=== PATIENT | male | born 1950 | race Caucasian/White ===

== ENCOUNTER → 2018-08-13 | Outpatient (CLI) | payer MEDICARE ==
[2018-08-13 12:52] LABS: BASOPHIL % 0.4 % (0.0-0.2); EOSINOPHIL # 0.2 10^3/uL (0.0-0.2); EOSINOPHIL % 2.9 % (0.0-5.0); HEMOGLOBIN 14.4 g/dL (13.9-16.3); LYMPHOCYTES # 1.9 10^3/uL (1.0-4.8); LYMPHOCYTES % 25.3 % (24.0-44.0); MEAN CELL HGB CONCENTRATION 36.3 g/dL (33-37); MEAN CORP VOLUME 82.7 fL (78-100); MEAN PLATELET VOLUME 9.6 fL (7.8-11.0); MONOCYTES # 0.7 10^3/uL (0.3-0.8); MONOCYTES % 9.1 % (5.0-12.0); NEUTROPHIL # 4.6 10^3/uL (1.8-7.7); NEUTROPHILS % 62.2 % (41.0-85.0); PLATELET COUNT 237 10^3/uL (150-400); RED CELL DISTRIBUTION WIDTH 12.9 % (11.5-14.5); WHITE BLOOD CELL 7.5 10^3/uL (4.5-11.0)
[2018-08-13 13:43] LABS: CALCIUM 8.7 mg/dL (8.4-10.5); CARBON DIOXIDE 23.8 mmol/L (20.0-32)
== END | disposition home or self-care (01) ==
LOC: LAB 12:33
PROVIDERS: ATTEND Internal Medicine
DX: Z68.33 Body mass index [BMI] 33.0-33.9, adult (principal)
CPT/HCPCS: 36415; 80053; 80061; 83036; 84439; 84443; 85025

== ENCOUNTER 2019-05-05 16:54 | Emergency (ER) | payer MEDICARE ==
[~2019-05-05] VITALS: Ht 172.7 cm; Wt 94.8 kg
--- NOTE | 2019-05-05 17:16 | ER.PDOC ---
General Chief Complaint: Requesting Medical Care Stated Complaint: WOUND CHECK Time seen by MD: 17:12 Source: patient Exam Limitations: no limitations History of Present Illness Initial Procedure Done In ER: y Treated In Another ED/Practice: No Previous ED Treatment: laceration repair Symptoms Since Procedure: no complaints Skin: see HPI All Other Systems: Reviewed and Negative Physical Exam General Appearance: alert, no distress Neuro/Vascular/Tendon: no vascular compromise, sensation nml, no tendon injury, nml ROM Skin: no infection, healing wound Head/ENT: nml inspection, pharynx nml Neck/Back: nml inspection, non-tender, painless ROM Respiratory: chest non-tender, no resp. distress, breath sounds nml CVS: reg. rate & rhythm, heart sounds nml Abdomen: non-tender, no organomegaly Departure Time of Disposition: 17:15 Disposition: 01 HOME, SELF-CARE Impression: Primary Impression: Wound of right foot Condition: Stable Patient Instructions: Sutured Wound Care Referrals: RA SEGURA MD (PCP) PRIMARY CARE PROVIDER Duration or Time Spent with Pa: 10 MARIXA FORRESTER MD May 05, 2019 17:16
[2019-05-05 17:35] VITALS: BP 147/91
--- NOTE | 2019-05-05 17:38 | NUR ---
DRESSING TELFA, GAUZE, GAUZE ROLL AND COBAN APPLIED TO PT WOUND ON RIGHT FOOT.
== END 2019-05-05 17:41 | disposition home or self-care (01) ==
LOC: ER 16:54
DX: S91.301D Unspecified open wound, right foot, subsequent encounter (principal); X58.XXXD Exposure to other specified factors, subsequent encounter; Y93.89 Activity, other specified; Y92.89 Other specified places as the place of occurrence of the external cause; Y99.8 Other external cause status
CPT/HCPCS: 99281; 99282; 99284

== ENCOUNTER → 2019-07-25 | Outpatient (CLI) | payer MEDICARE ==
--- NOTE | 2019-07-25 18:10 | DIREP ---
PROCEDURE:XRAY SACRUM COCCYX MIN 2VWS COMPARISON:None. INDICATIONS:M53.3 SACROCOCCYGEAL DISORDERS, W19.XXXA FAL INITIAL ENCOUNTER FINDINGS:AP, lateral, coned-down angled view of sacrum and coccyx. BONES:No fracture is identified.. JOINTS:Sudikksi-ph-eoguez degenerative changes seen lumbar spine involving L3/L4, L4/L5, and L5/S1.. SOFT TISSUES:Normal. OTHER:Implanted device that likely represents a baclofen pump overlies device is seen with its catheter extending to the midline spine. Metallic clips are in the pelvis. CONCLUSION: No evidence of acute fracture. Dictated by: Ralph Gregorio MD on 07/25/2019 at 06:04 PM
== END | disposition home or self-care (01) ==
LOC: RAD 16:24
PROVIDERS: ATTEND Nurse Practitioner
DX: M53.3 Sacrococcygeal disorders, not elsewhere classified (principal)
CPT/HCPCS: 72220

== ENCOUNTER → 2020-01-07 | Outpatient (CLI) | payer MEDICARE ==
--- NOTE | 2020-01-07 14:19 | DIREP ---
PROCEDURE:XRAY KNEE 2 VWS-LT COMPARISON:None. INDICATIONS:PAIN FINDINGS: BONES:Normal. JOINTS:Mild degenerative loss of joint space in the medial compartment. Mild osteophytosis in the medial and patellofemoral compartment. No joint effusion. SOFT TISSUES:Normal. OTHER:No additional findings. CONCLUSION: 1. Mild degenerative joint disease. Dictated by: Freddy Lubin Jr. on 01/07/2020 at 01:43 PM
== END | disposition home or self-care (01) ==
LOC: RAD 11:49
PROVIDERS: ATTEND Internal Medicine
DX: M25.562 Pain in left knee (principal)
CPT/HCPCS: 73560-LT

== ENCOUNTER → 2020-02-27 | Outpatient (CLI) | payer MEDICARE ==
--- NOTE | 2020-02-27 16:46 | DIREP ---
PROCEDURE:MR KNEE WITHOUT CONTRAST [Left] TECHNIQUE:Multi-planar MR images of the left knee were obtained without contrast. COMPARISON:[facility], CR, XRAY KNEE 1-2 VWS-LT, 01/07/2020, 12:06 PM. INDICATIONS:PATELLA TENDON RUPTURE FINDINGS: MENISCI:Complex tear posterior horn, and body of the medial meniscus. Free edge degenerative fraying of the posterior horn lateral meniscus. CRUCIATE LIGAMENTS:Mucoid ACL degeneration without disruption seen. PCL demonstrates normal signal and morphology. COLLATERAL LIGAMENTS:Reactive edema surrounding the MCL without thickening cyst suggest sprain. Lateral collateral ligamentous complex demonstrates normal signal and morphology. HYALINE CARTILAGE:Full-thickness chondral loss noted towards the periphery of the medial joint compartment with subchondral cyst formation and reactive edema. Scattered full-thickness chondral fissuring seen in the lateral joint compartment articular cartilage particularly posteriorly. PATELLOFEMORAL:Patellofemoral articular cartilage demonstrates no focal defect. Quadriceps and patellar tendons intact. Patellar tendon intact with mild tendinosis, no tendon disruption seen. BONES:Marrow signal is age appropriate. Reactive marrow edema medial femoral condyle and medial tibial plateau. Small medial joint compartment marginal osteophytes. OTHER:Small mildly complicated Bobo's cyst appears partially ruptured inferiorly.. CONCLUSION: 1. Complex tear posterior horn and body medial meniscus. 2. Patellar tendon appears intact, mild underlying tendinosis suspected. 3. Reactive edema surrounds the MCL, less likely grade 1 sprain. 4. Medial compartment osteoarthritis. 5. Mucoid ACL degeneration. Dictated by: Carlos Gonzalez M.D. on 02/27/2020 at 04:38 PM
== END | disposition home or self-care (01) ==
LOC: RAD 12:53
PROVIDERS: ATTEND Orthopaedic Surgery
DX: S83.242A Other tear of medial meniscus, current injury, left knee, initial encounter (principal); M17.12 Unilateral primary osteoarthritis, left knee; X58.XXXA Exposure to other specified factors, initial encounter; Y93.89 Activity, other specified; Y92.89 Other specified places as the place of occurrence of the external cause; Y99.8 Other external cause status
CPT/HCPCS: 73721

== ENCOUNTER 2020-08-21 09:50 | Inpatient (IN) | payer MEDICARE ==
[~2020-08-21] VITALS: Ht 172.7 cm; Wt 84.6 kg
[2020-08-21] VITALS (31 sets, daily range): BP systolic 100–162; BP diastolic 48–112
--- NOTE | 2020-08-21 09:50 | NUR ---
PT STS HE WENT TO SEE FOR A BLISTER ON RIGHT FOOT, A LUMP ON HID NECK AND CHRONIC BACK PAIN
--- NOTE | 2020-08-21 09:50 | NUR ---
ARRIVAL 0940 PT VERY POOR HISTORIAN, PER PT WAS SEEN IN DR. BROWN OFFICE TODAY BECAUSE OF AL FALL DR. SEGURA SENT PT TO ER FOR EVALUATION. PT HR ANYWHERE FROM 90 TO 145. PT STS HE IS NOT FAMILIAR WITH HIS MEDICATION. PT DENIES N/V/D.
--- NOTE | 2020-08-21 10:23 | PCM.EKG ---
[facility] Test Date: 2020-08-21 Test Time: 10:10:20 Pat Name: TG DEL CASTILLO Department: Room: ICU2 Gender: M Acid Tester: DAQUAN : 1950 Requested By: MARK ECKERT Order Number: [id number] Reading MD: Mark ECKERT Measurements Intervals [place] Rate: 151 P: [place]: QRS: 113 QRSD: 134 T: 9 QT: 300 QTc: 476 Interpretive Statements Wide-QRS tachycardia RBBB and LPFB No previous ECG available for comparison Electronically Signed On 08-23-2020 7:27:14 [employer] by Mark ECKERT Please click the below link to view image of tracing.
--- NOTE | 2020-08-21 10:30 | NUR ---
AT BEDSIDE. EXAMINING PT
--- NOTE | 2020-08-21 10:40 | NUR ---
SR KLEIN IS REQUESTING ICU BED PT RIGHT POSTERIOR BUNDLE BRANCH BLOCK
--- NOTE | 2020-08-21 10:40 | ER.PDOC ---
General Chief Complaint: Palpitations Stated Complaint: HEART ARRHYTHMIA Time seen by MD: 10:36 Source: patient Exam Limitations: no limitations History of Present Illness Initial Comments Palpitations this morning, no chest pain. Patient was sent here by Dr. Segura. He denies SOB, nausea or vomiting. Quality: fast Activities at Onset: none Associated Symptoms: denies symptoms Allergies: Coded Allergies: No Known Allergies (Unverified , 05/05/19) Past Medical History Medical History: diabetes, hypertension Surgical History: appendectomy, back Family History Significant Family History: no pertinent family hx Social History Smoking: non-smoker Alcohol Use: none Drug Use: none Constitutional: no symptoms reported EENTM: no symptoms reported Respiratory: no symptoms reported Cardiovascular: see HPI Gastrointestinal: no symptoms reported Genitourinary: no symptoms reported All Other Systems: Reviewed and Negative Physical Exam General Appearance: No Apparent Distress, WD/WN Neck: Non-Tender, Full Range of Motion, Supple, Normal Inspection Respiratory: chest non-tender, lungs clear, normal breath sounds, no respiratory distress, no accessory muscle use Cardiovascular: Normal Peripheral Pulses, Tachycardia, Irregularly Irregular Gastrointestinal: Normal Bowel Sounds, No Organomegaly, No Pulsatile Mass, Non Tender, Soft Extremities: Normal Range of Motion, Non-Tender, Normal Inspection, No Pedal Edema, No Calf Tenderness, Normal Capillary Refill Neurologic/Psychiatric: vp cardiovascular II-XII NML as Tested, No Motor/Sensory Deficits, Alert, Normal Mood/Affect, Oriented x 3 Skin: Normal Color, Warm/Dry Lymphatic: No Adenopathy Results/Orders Results/Orders Orders - ROQUE ECKERT MD Cbc With Auto Diff (08/21/20 10:21) Comprehensive Metabolic Panel (08/21/20 10:21) Creatine Kinase (08/21/20 10:21) Creatine Kinase Mb (08/21/20 10:21) Troponin I (08/21/20 10:21) Probnp B-Type Leather Softener (08/21/20 10:21) PT (08/21/20 10:21) Partial Thromboplastin Time. (08/21/20 10:21) Xr Chest 1v (08/21/20 10:21) Ekg-Routine (08/21/20 10:21) Vital Signs Date Time Temp Pulse Resp B/P (MAP) Pulse Ox O2 Delivery O2 Flow Rate FiO2 08/21/20 10:07 98.2 82 20 99 08/21/20 10:07 98.2 82 20 99 EKG/XRAY/CT/US EKG: nonspecific ST T wave chg EKG Comments: A fib, Rate 151 XRAY: chest (No active disease) ER DEPART Departure Time of Disposition: 10:45 Disposition: 09 ADMITTED INPATIENT Impression: Primary Impression: Atrial fibrillation with rapid ventricular response Condition: Critical Referrals: RA SEGURA MD (PCP) PRIMARY CARE PROVIDER Comments Admitted by Dr. Lopez Duration or Time Spent with Pa: 45 min ROQUE ECKERT MD Aug 21, 2020 10:40
[2020-08-21 10:41] LABS: BASOPHIL % 0.5 % (0.0-0.2); EOSINOPHIL # 0.1 10^3/uL (0.0-0.2); EOSINOPHIL % 1.8 % (0.0-5.0); LYMPHOCYTES # 1.33 10^3/uL1 (1.0-4.8); MEAN CORP HGB 30.1 pg (26-34); MONOCYTES # 0.6 10^3/uL (0.3-0.8); MONOCYTES % 8.9 % (5.0-12.0); NEUTROPHIL # 4.6 10^3/uL (1.8-7.7); NEUTROPHILS % 68.6 % (41.0-85.0); PLATELET COUNT 260 10^3/uL (150-400); RED CELL DISTRIBUTION WIDTH 12.4 % (11.5-14.5)
[2020-08-21] MEDS ORDERED: NEXTERONE IV STA (10:42)
[2020-08-21] MEDS ORDERED: NEXTERONE 360 MG/200 ML BAG 200 ML IV STA (10:42)
[2020-08-21] MEDS ORDERED: NEXTERONE ONE (10:47)
[2020-08-21] MEDS ORDERED: NEXTERONE 360 MG/200 ML BAG 200 ML IV ONE (10:48)
--- NOTE | 2020-08-21 10:55 | DIREP ---
PROCEDURE:CHEST 1 VIEW COMPARISON:None. INDICATIONS:Palpitations FINDINGS: LUNGS/PLEURA:No significant pulmonary parenchymal abnormalities. No effusions. VASCULATURE:Normal. Unremarkable pulmonary vasculature. CARDIAC:Normal. No cardiac silhouette abnormality or cardiomegaly. MEDIASTINUM:Normal. No visible mass or adenopathy. BONES:Degenerative changes of the shoulders and spine. OTHER:Negative. CONCLUSION:No acute cardiopulmonary abnormality. Dictated by: Brandon Thurman M.D. on 08/21/2020 at 10:53 AM
[2020-08-21] MEDS ORDERED: ATIVAN PO STA (10:57)
--- NOTE | 2020-08-21 11:00 | NUR ---
AMIODORONAmilcar TINEO
[2020-08-21 11:11] LABS: ALANINE AMINOTRANSFERASE(ML) 20 U/L (12-78); ALKALINE PHOSPHATASE 94 U/L (50-136); ASPARTATE AMINO TRANSFERASE 10 U/L (0-35); CALCIUM 8.4 mg/dL (8.4-10.5); CARBON DIOXIDE 22.3 mmol/L (20.0-32)
[2020-08-21] MEDS ORDERED: INSU100I13 SQ ×2 (11:23→11:31)
[2020-08-21] MEDS ORDERED: PREG150C PO (11:23)
[2020-08-21] MEDS ORDERED: NABU750T7 PO (11:23)
[2020-08-21] MEDS ORDERED: DOXE10CA PO (11:23)
[2020-08-21] MEDS ORDERED: MULT-419 PO (11:23)
[2020-08-21] MEDS ORDERED: LISI-410 PO (11:23)
[2020-08-21] MEDS ORDERED: METF10007 PO (11:23)
[2020-08-21] MEDS ORDERED: DOCU-123 PO (11:23)
[2020-08-21] MEDS ORDERED: ROSU20TA2 PO (11:23)
[2020-08-21] MEDS ORDERED: SENN8.6T98 PO (11:23)
[2020-08-21] MEDS ORDERED: OXYC20TA2 PO (11:23)
[2020-08-21] MEDS ORDERED: GLIP5TAB10 PO (11:23)
[2020-08-21 11:24] LABS: GLUCOSE 408 mg/dL (70-110)
[2020-08-21] MEDS ORDERED: NEXTERONE 360 MG/200 ML BAG 200 ML IV SCH ×2 (11:30→17:30)
[2020-08-21] MEDS ORDERED: ASPI-178 PO (11:31)
[2020-08-21] MEDS ORDERED: DILT240T8 PO (11:31)
[2020-08-21] MEDS ORDERED: DIPH50CA PO (11:31)
[2020-08-21] MEDS ORDERED: NS 250ML 250 ML IV ONE (11:59)
[2020-08-21] MEDS: NS 1000ML/KCL 20MEQ 1,000 ML IV SCH (12:00)
[2020-08-21] MEDS ORDERED: DEXTROSE 50%-WATER SYRINGE IV PRN (12:00)
[2020-08-21] MEDS: HUMALOG SQ SCH ×2 (12:20→17:56)
[2020-08-21] MEDS ORDERED: ATIVAN ONE (12:48)
[2020-08-21] MEDS ORDERED: TOPROL XL PO STA (13:02)
[2020-08-21] MEDS: ZOSYN 3.375 GM 3.375 GM in NS 100ML 100 ML IV SCH ×2 (13:30→19:30)
--- NOTE | 2020-08-21 14:18 | HPH ---
ADMIT DATE: 08/21/2020 CHIEF COMPLAINT: Rapid irregular heartbeat, shortness of breath and significant anxiety. HISTORY OF PRESENT ILLNESS: The patient is a 70-year-old white male with history of hypertension, hypertensive heart disease and insulin-dependent diabetes and primary patient of Dr. Bernstein and he was picking up a package when the wind was blowing hard and then subsequently he felt his heart was running very fast and he became extremely anxious and came to the Emergency Room and was noted to be in atrial flutter/fibrillation with a ventricular rate of 150 and he had shortness of breath, no chest pain was noted. EKG showed right bundle branch block, left posterior fascicular block and atrial flutter/fibrillation with rapid ventricular response and I was called in consultation in the Emergency Room for further evaluation and management. He denied chest pain, was extremely anxious, was having shortness of breath. Complained of leg edema and he has a wound on his right heal and it seems like a diabetic ischemic wound. ALLERGIES: None known. MEDICATIONS AND PAST MEDICAL HISTORY: He is on a list of medications, which include aspirin 81 mg once a day, lisinopril 20 mg once a day, Senokot 8.6 mg at bedtime, Cardizem 240 mg once a day, diphenhydramine 50 mg once a day, metformin 1 gram twice a day and he is on nabumetone 750 mg twice a day which is a nonsteroidal agent, Lyrica 150 mg twice a day, doxepin 10 mg once a day, glipizide 5 mg twice a day. He is on Lantus insulin 30 units twice a day, oxycodone 20 mg 3 times a day p.r.n. for back pain. He has got a nerve stimulator in the left lower quadrant of his abdomen and has a neuropathy manifestation in both legs, Crestor 20 mg once a day. He was on Eliquis at one time, but he denies having had any atrial fibrillation or he is unclear on it. His memory is slightly decreased, history of depression. No known history of myocardial infarction, history of cancer or any TIA or strokes in the past. He has had 2 back operations and had a nerve stimulator for pain control and he has got chronic pain syndrome. SOCIAL HISTORY: Nonsmoker, no ethanol use. FAMILY HISTORY: Positive for heart problems. PHYSICAL EXAMINATION: GENERAL: He is very anxious, alert, awake, oriented. VITAL SIGNS: Height 172 cm, weight 81 kilograms, BMI is 27.2. His heart rate of 150, blood pressure 105/70 with respirations of 20, temperature was 98 and saturation of 98%. HEENT: Unremarkable. NECK: Jugular venous distention noted was 6-8 cm over the angle of Dima. There was a faint right carotid bruit. LUNGS: Showing some rales bilaterally. HEART: Sounds S1, S2 normal. Tachycardia, irregular rhythm was noted. No murmurs audible. May have a systolic ejection murmur in the aortic area consistent with aortic sclerosis, was not significant. ABDOMEN: Soft, nontender. EXTREMITIES: Dependent edema noted bilaterally and painful right ankle and appears to be an ischemic early necrotic wound in the right foot, will require wound care. IMAGING STUDIES: EKG; left posterior fascicular block, right bundle branch block, atrial fibrillation with rapid ventricular response. Chest x-ray unremarkable. LABORATORY DATA: CBC was normal, 408 sugar. Chemistries otherwise are normal. Troponin was less than 0.02, 652 proBNP. IMPRESSION: New onset atrial flutter/fibrillation, rapid ventricular response, probably clinical congestive heart failure, has hypertension, hypertensive heart disease, chronic diastolic heart failure, insulin-dependent diabetes mellitus, underlying coronary artery disease is a concern. Right carotid bruit. Right foot wound, probably ischemic diabetic wound, rule out early pregangrenous status. PLAN: At this time, wound care, Zosyn 3.375 grams IV q. 6 hours, IV amiodarone loading drip and Lovenox 1 mg/kg subcutaneous b.i.d. along with metoprolol and serial EKG, enzymes, echocardiogram, carotid Doppler and further medical management depends on the clinical course. Laxmichand MD John DR: NERY/rogers JOB# [id number]
--- NOTE | 2020-08-21 15:26 | PCM.EKG ---
[facility] Test Date: 2020-08-21 Test Time: 15:22:20 Pat Name: TG DEL CASTILLO Department: Room: ICU2 A Gender: M Heel Shaper: ED : 1950 Requested By: DEVIN PINEDA Order Number: [id number] Reading MD: Measurements Intervals [place] Rate: 57 P: 25 LA: 224 QRS: 82 QRSD: 136 T: 46 QT: 455 QTc: 443 Interpretive Statements Sinus rhythm Prolonged LA interval Right bundle branch block Compared to ECG 08/21/2020 10:10:20 First degree AV block now present Left posterior fascicular block no longer present Please click the below link to view image of tracing.
--- NOTE | 2020-08-21 16:45 | NUR ---
Pt bradycardic to 55, falling asleep Dr. Lopez notified Amiodarone d/c'd and lovenox d/c'd . Coming up to see patient at present.
[2020-08-21] MEDS ORDERED: NS 500ML 500 ML IV ONE (17:00)
--- NOTE | 2020-08-21 17:00 | NUR ---
Dr. Lopez here to evaluate patient, NS 500 bolus and EKG being done now
--- NOTE | 2020-08-21 17:07 | PCM.EKG ---
[facility] Test Date: 2020-08-21 Test Time: 17:03:38 Pat Name: TG DEL CASTILLO Department: Room: ICU2 A Gender: M Quantitative Manager: ED RT : 1950 Requested By: DEVIN PINEDA Order Number: [id number] Reading MD: Measurements Intervals [place] Rate: 55 P: 50 WI: 228 QRS: 74 QRSD: 135 T: 37 QT: 483 QTc: 462 Interpretive Statements Sinus rhythm Prolonged WI interval Right bundle branch block Compared to ECG 08/21/2020 15:22:20 No significant changes Please click the below link to view image of tracing.
--- NOTE | 2020-08-21 18:54 | NUR ---
REPORT RECEIVED FROM BRENNON MAI RN. ASSUMED PT CARE.
--- NOTE | 2020-08-21 18:55 | NUR ---
Report to Manfred Rose RN, discussed patient's condition and plan of care.
[2020-08-21] MEDS: OXY-IR PO PRN (20:05)
[2020-08-21] MEDS: LANTUS SQ SCH (21:00)
[2020-08-21] MEDS ORDERED: LOVENOX SQ SCH (21:00)
[2020-08-21] MEDS ORDERED: ATIVAN PO SCH (21:00)
[2020-08-21] MEDS ORDERED: SINEQUIN PO SCH (21:00)
[2020-08-21] MEDS: COLACE PO SCH (21:19)
[2020-08-21] MEDS: ELIQUIS PO SCH (21:20)
[2020-08-21] MEDS: GLUCOTROL PO SCH (21:20)
[2020-08-22] VITALS (50 sets, daily range): BP systolic 91–147; BP diastolic 30–97
--- NOTE | 2020-08-22 00:47 | PCM.EKG ---
[facility] Test Date: 2020-08-22 Test Time: 00:43:46 Pat Name: TG DEL CASTILLO Department: Room: ICU2 A Gender: M Community Mental Health Social Worker: SUZANNE : 1950 Requested By: DEVIN PINEDA Order Number: [id number] Reading MD: Measurements Intervals [place] Rate: 55 P: 40 WA: 221 QRS: 88 QRSD: 145 T: 47 QT: 506 QTc: 484 Interpretive Statements Sinus rhythm Prolonged [place] interval Right bundle branch block Compared to ECG 08/21/2020 17:03:38 No significant changes Please click the below link to view image of tracing.
[2020-08-22] MEDS: ZOSYN 3.375 GM 3.375 GM in NS 100ML 100 ML IV SCH ×2 (01:29→07:30)
[2020-08-22] MEDS: NS 1000ML/KCL 20MEQ 1,000 ML IV SCH (02:55)
--- NOTE | 2020-08-22 06:44 | NUR ---
REPORT TO ONCOMING SHIFT. PT CARE RELINQUISHED.
[2020-08-22] MEDS ORDERED: OXY-IR ONE ×2 (07:40→07:43)
[2020-08-22] MEDS: HUMALOG SQ SCH ×2 (07:53→12:00)
[2020-08-22] MEDS: OXY-IR PO PRN (07:54)
[2020-08-22] MEDS ORDERED: CRESTOR PO ONE (08:24)
[2020-08-22] MEDS: COLACE PO SCH (08:34)
[2020-08-22] MEDS: LANTUS SQ SCH (08:35)
[2020-08-22] MEDS: GLUCOTROL PO SCH (08:35)
[2020-08-22] MEDS: ELIQUIS PO SCH (08:35)
[2020-08-22] MEDS ORDERED: THERA PO SCH (09:00)
[2020-08-22] MEDS ORDERED: CRESTOR PO SCH (09:00)
[2020-08-22] MEDS ORDERED: AMIO200T6 PO (13:35)
[2020-08-22] MEDS ORDERED: APIX5TAB PO (13:35)
[2020-08-22] MEDS ORDERED: INSU100V8 SQ (13:35)
[2020-08-22] MEDS ORDERED: LOSA25TA12 PO (13:35)
[2020-08-22] MEDS ORDERED: AMOX1TAB63 PO (13:38)
--- NOTE | 2020-08-22 14:10 | DSH ---
DATE OF DISCHARGE: 08/22/2020 FINAL DIAGNOSES: Atrial fibrillation with rapid ventricular response, cardioverted chemically with IV amiodarone drip and relative bradycardia; conduction system abnormality with left posterior fascicular block and right bundle branch block; insulin-dependent diabetes mellitus; chronic pain syndrome; hypertension; hypertensive heart disease; diabetic ischemic ulcer on the right foot, rule out pregangrenous status; right carotid bruit; underlying coronary artery disease, definite concern. Please refer to my history and physical to the point of my impression. HOSPITAL COURSE: The patient is a 70-year-old white male who is a primary patient of Dr. Bernstein. He was carrying some boxes when he had palpitations and came to the ER, was in atrial fibrillation with rapid ventricular response of 140-150 and was very anxious, and EKG showed right bundle branch block and left posterior fascicular block with atrial fibrillation with rapid ventricular response, and he was having shortness of breath with clinical manifestations of some pulmonary congestion and he has multiple medical problems. He was started on IV amiodarone drip and Lovenox 1 mg/kg subcutaneous twice a day, and he became relatively bradycardic with a rate about 50 while on amiodarone drip and did convert several hours later into regular sinus rhythm. EKG showed still right bundle branch block and left posterior fascicular block. Troponins were negative. He feels well this morning, and at the present time, he wants to go home. He probably needs to be evaluated for underlying coronary artery disease. His CBC was normal. Sugar was slightly elevated to 408, and he received sliding scale insulin coverage, and at the time of discharge, sugar was 218 and his 2 troponins are less than 0.02. EKG was stable. He overall felt better, and he was told to come to the office on 08/27/2020 at 10 o'clock for a Lexiscan myocardial perfusion scan. I did put him on amiodarone 200 mg once a day and Augmentin 875 mg 1 tablet twice a day for ischemic foot ulcer, and the [facility] would not allow me to continue his 70/30 insulin, so I put him on Lantus insulin 30 units subcutaneous b.i.d. He can take it up with Dr. Bernstein and go back to his usual insulin. Because his blood pressures are relatively low, I did not start him on his diltiazem and lisinopril, just gave him a low-dose losartan 25 mg once a day, aspirin 81 mg once a day, Colace 100 mg twice a day, doxepin 10 mg once a day, glipizide 5 mg twice a day, metformin 1 gram twice a day, multivitamin once a day, Lyrica 150 mg twice a day, Crestor 20 mg once a day, Senokot 8.6 mg at bedtime. Diltiazem, diphenhydramine, lisinopril, Relafen, and oxycodone were held at this time. I discouraged him from taking these medications because of his lower rates and at the same time to preserve his kidney and possibility of underlying coronary artery disease. His creatinine was normal, and he will check back with Dr. Bernstein, but we will have a perfusion study on 08/27/2020 at 10 o'clock. No caffeine for 14 hours before the test. Laxmichand MD John DR: NERY/rogers JOB# [id number]
--- NOTE | 2020-08-22 14:34 | NUR ---
1400 PATIENT READYING FOR DISCHARGE. UP TO BS FOR VERY LARGE BM, SOLID, BROWN. IV'S IN LUE DC'D WITH CATHETERS INTACT, HEMOSTASIS ACHIEVED WITH COTTON AND COBAN. SPOUSE WENT DOWN TO GET VEHICLE. PATEINT AMBULATED IN UNIT AND IN ROOM, GAIT STEADY, OCCASIONAL ASSISTANCE BY PATIENT GRABBING FURNITURE. DENIES ANY CHEST PAIN, SHORTNESS OF BREATH OR DIFFICULTY BREATHING. ASSISTED PATIENT WITH SOCKS AND SHOES. REVIEWED DISCHARGE INSTRUCTIONS AND NEW PRESCRIPTIONS WITH PATIENT, QUESTIONS ANSWERED. ADVISED PATIENT OF DATE AND TIME FOR FOLLOWUP APPOINTMENT WITH MD. PATIENT TAKEN TO PRIVATE VEHICLE IN WHEELCHAIR. FAMILY ASSUMED CARE OF PATIENT.
--- NOTE | 2020-08-22 19:10 | CNH ---
DATE OF CONSULTATION: 08/22/2020 INDICATION: A 70-year-old male with atrial flutter/fibrillation with rapid ventricular response and right bundle-branch block, left posterior fascicular block, hypertension, hypertensive heart disease and diabetes mellitus, assess for LV function. The patient's echo was done after the patient did convert back into regular sinus rhythm. He did have first-degree AV block at that time and some of the images are suboptimal. FINDINGS: Mitral valve shows some degree of mitral annular calcification and mild mitral regurgitation of 1.87 meters consistent with 1-2+ mitral regurgitation. Aorta is sclerotic with normal aortic valve opening of 5.6 square cm. Tricuspid valve shows trivial tricuspid regurgitation with right ventricular systolic pressure of 17 mm. Right ventricle is top normal size, mild enlargement to 3.5 cm. Right atrium is enlarged to 4.6 cm in 4-chamber longitudinal dimension. Left atrium is enlarged in 4-chamber longitudinal dimension to 5.5 cm. Left ventricle is also enlarged to 5.91 cm, end diastolic dimension with 3.75 cm, end-systolic dimension with increased volume overload with an increase in end-diastolic volume of 120 mL with intact LV systolic function with 60% ejection fraction. IVC is top normal size. Hence, LV enlargement, volume overload and intact LV systolic function, biatrial enlargement, mild right ventricular enlargement, mild mitral and tricuspid regurgitation. No thrombus in any other cardiac chambers. Laxmichand MD John DR: NERY/rogers JOB# [id number]
== END 2020-08-22 14:10 | disposition home or self-care (01) | DRG 310 ==
LOC: ER 09:50 → ICU 10:48
PROVIDERS: ADMIT Specialist; ATTEND Specialist
PROC: 5A2204Z Restoration of Cardiac Rhythm, Single (ICD-10-PCS; principal; 2020-08-22)
DX: I48.91 Unspecified atrial fibrillation (principal); I45.2 Bifascicular block; I48.92 Unspecified atrial flutter; F41.9 Anxiety disorder, unspecified; G89.4 Chronic pain syndrome; I44.0 Atrioventricular block, first degree; E11.621 Type 2 diabetes mellitus with foot ulcer; I11.9 Hypertensive heart disease without heart failure; L97.519 Non-pressure chronic ulcer of other part of right foot with unspecified severity; I25.10 Atherosclerotic heart disease of native coronary artery without angina pectoris; E11.65 Type 2 diabetes mellitus with hyperglycemia; I08.1 Rheumatic disorders of both mitral and tricuspid valves; Z79.899 Other long term (current) drug therapy; Z79.4 Long term (current) use of insulin
CPT/HCPCS: 36415; 71045; 80053; 82550; 82553; 82948; 83880; 84484; 85025; 85610; 85730; 87070; 87077; 87186; 87633; 93005; 93306; 99285; G0378; J0282; J1815; J2543; J7040; J7050

== ENCOUNTER → 2021-05-07 | Outpatient (CLI) | payer MEDICARE ==
[~2021-05-07] MED LIST: AMIO200T55 PO; AMOX1TAB63 PO; APIX5TAB PO; ASPI-178 PO; DILT240T8 PO; DIPH50CA16 PO; DOCU-123 PO; DOXE10CA PO; GLIP5TAB10 PO; INSU100I13 SQ; INSU100V8 SQ; LISI20TA21 PO; LOSA25TA12 PO; METF10007 PO; MULT-419 PO; NABU750T11 PO; OXYC20TA2 PO; PREG150C PO; ROSU20TA2 PO; SENN8.6T98 PO
[2021-05-07 15:06] LABS: BASOPHIL % 0.3 % (0.0-0.2); EOSINOPHIL # 0.1 10^3/uL (0.0-0.2); EOSINOPHIL % 0.8 % (0.0-5.0); LYMPHOCYTES # 0.94 10^3/uL1 (1.0-4.8); LYMPHOCYTES % 12.3 % (24.0-44.0); MEAN CORP HGB 29.9 pg (26-34); MONOCYTES # 0.7 10^3/uL (0.3-0.8); MONOCYTES % 9.1 % (5.0-12.0); NEUTROPHIL # 5.9 10^3/uL (1.8-7.7); NEUTROPHILS % 77.4 % (41.0-85.0); PLATELET COUNT 300 10^3/uL (150-400); RED CELL DISTRIBUTION WIDTH 12.7 % (11.5-14.5)
[2021-05-07 15:19] LABS: BILIRUBIN,URINE NEGATIVE (NEGATIVE)
[2021-05-07 15:20] LABS: UROBILINOGEN,URINE 0.2 E.U./dL (0.2)
[2021-05-07 15:35] LABS: CALCIUM 9.5 mg/dL (8.4-10.5); CARBON DIOXIDE 27.5 mmol/L (20.0-32)
== END | disposition home or self-care (01) ==
LOC: LAB 14:41
PROVIDERS: ATTEND Internal Medicine
DX: Z12.5 Encounter for screening for malignant neoplasm of prostate (principal); R42 Dizziness and giddiness; F41.1 Generalized anxiety disorder; I10 Essential (primary) hypertension; E11.40 Type 2 diabetes mellitus with diabetic neuropathy, unspecified; R41.0 Disorientation, unspecified; Z79.899 Other long term (current) drug therapy
CPT/HCPCS: 36415; 80053; 81001; 83036; 84439; 84443; 85025; 87086; G0103; 84153

== ENCOUNTER 2021-11-09 08:50 | Inpatient (IN) | payer MEDICARE ==
[2021-11-09] VITALS (42 sets, daily range): BP systolic 113–172; BP diastolic 44–112
[~2021-11-09] VITALS: Ht 172.7 cm; Wt 86.6 kg
--- NOTE | 2021-11-09 09:17 | PCM.EKG ---
[facility] Test Date: 2021-11-09 Test Time: 09:02:38 Pat Name: TG DEL CASTILLO Department: [id number] Room: Gender: M Weaver [place]: CAMI : 1950 Requested By: SHELLY EMERSON Order Number: [id number] Reading MD: Measurements Intervals [place] Rate: 144 P: [place]: QRS: 173 QRSD: 126 T: 20 QT: 331 QTc: 513 Interpretive Statements Atrial fibrillation RBBB and LPFB Compared to ECG 11/09/2021 09:00:50 Ventricular premature complex(es) no longer present Please click the below link to view image of tracing.
[2021-11-09 09:25] LABS: BASOPHIL % 0.3 % (0.0-0.2); EOSINOPHIL # 0.1 10^3/uL (0.0-0.2); EOSINOPHIL % 0.8 % (0.0-5.0); LYMPHOCYTES # 1.17 10^3/uL1 (1.0-4.8); LYMPHOCYTES % 12.6 % (24.0-44.0); MEAN CORP HGB 30.1 pg (26-34); MONOCYTES # 0.6 10^3/uL (0.3-0.8); MONOCYTES % 6.9 % (5.0-12.0); NEUTROPHIL # 7.4 10^3/uL (1.8-7.7); NEUTROPHILS % 79.2 % (41.0-85.0); RED CELL DISTRIBUTION WIDTH 13.8 % (11.5-14.5)
--- NOTE | 2021-11-09 09:33 | ER.PDOC ---
General Chief Complaint: General Complaint Stated Complaint: HYPOGLYCEMIA TRAVEL OUT OF US: No Time seen by MD: 09:26 Source: patient, EMS Exam Limitations: no limitations History of Present Illness Severity: moderate Allergies: Coded Allergies: No Known Allergies (Unverified , 05/05/19) Home Meds Active Scripts [Metoprolol Succinate] 25 MG TAB.ER.24H No Conflict Check, 25 MG PO DAILY for 30 Days Prov:DEVIN PINEDA MD 11/10/21 Dofetilide (TIKOSYN) 125 Mcg Capsule, 125 MCG PO BID for 30 Days, CAPSULE Prov:DEVIN PINEDA MD 11/10/21 Losartan Potassium (LOSARTAN POTASSIUM) 25 Mg Tablet, 25 MG PO DAILY24 for 30 D ays Prov:DEVIN PINEDA MD 08/22/20 Apixaban (Eliquis) 5 Mg Tablet, 5 MG PO BID for 30 Days, TAB Prov:DEVIN PINEDA MD 08/22/20 Insulin Glargine,Hum.rec.anlog (LANTUS SOLOSTAR) 100 Unit/1 Ml Insuln.pen, 30 UNITS SQ DAILY24, #15 MILLILITER 3 Refills Prov:DEVIN PINEDA MD 08/21/20 Reported Medications Aspirin (Lo-Dose Aspirin EC) 81 Mg Tablet.dr, 81 MG PO DAILY24 08/21/20 Docusate Sodium (COLACE) 100 Mg Capsule, 100 MG PO BID, CAPSULE 08/21/20 Pregabalin (LYRICA) 150 Mg Capsule, 1 CAP PO BID, #60 CAP 5 Refills 08/21/20 Doxepin Hcl (DOXEPIN HCL) 10 Mg Capsule, 1 CAP PO HS, #30 CAP 2 Refills 08/21/20 Multivitamin (MULTIVITAMINS) 1 Each Tablet, 1 TAB PO DAILY, #90 TAB 3 Refills 08/21/20 Metformin Hcl (METFORMIN HCL) 1,000 Mg Tablet, 1 TAB PO BID, #60 TAB 5 Refills 08/21/20 Sennosides (SENOKOT) 8.6 Mg Tablet, 8.6 MG PO HS, TAB 08/21/20 Rosuvastatin 20MG (CRESTOR 20MG) 20 Mg Tablet, 1 TAB PO DAILY, #30 TAB 5 Refills 08/21/20 Discontinued Reported Medications Glipizide (GLIPIZIDE) 5 Mg Tablet, 1 TAB PO BID, #60 TAB 3 Refills 08/21/20 Discontinued Scripts Amoxicillin/Potassium Clav (AUGMENTIN 875-125 TABLET) 1 Each Tablet, 1 EACH PO BID for 7 Days Prov:DEVIN PINEDA MD 08/22/20 Amiodarone Hcl (CORDARONE) 200 Mg Tablet, 200 MG PO DAILY24 for 30 Days Prov:DEVIN PINEDA MD 08/22/20 Insulin Glargine,Hum.rec.anlog (LANTUS) 100 Unit/1 Ml Vial, 30 UNIT SQ BID for 30 Days, VIAL Prov:DEVIN PINEDA MD 08/22/20 Past Medical History Medical History: cardiac problems, diabetes, hypertension, other Surgical History: other Social History Alcohol Use: none Drug Use: none Review of Systems Constitutional: chills Respiratory: denies no symptoms reported, denies see HPI, denies cough, denies orthopnea, denies shortness of breath, denies stridor, denies wheezing, denies other Cardiovascular: denies no symptoms reported, denies see HPI, denies chest pain, denies edema; palpitations; denies syncope, denies other Gastrointestinal: denies no symptoms reported, denies see HPI, denies abdominal pain, denies constipation, denies diarrhea, denies nausea, denies vomiting, denies other Physical Exam General Appearance: Anxious, Moderate Distress EENT: eyes nml inspection, nml ENT inspection Neck: Non-Tender, Full Range of Motion CVS: tachycardia Gastrointestinal: Normal Bowel Sounds, No Organomegaly Back: Normal Inspection, No CVA Tenderness Extremities: Normal Range of Motion, Non-Tender Skin: Normal Color Results/Orders Results/Orders Orders - SHELLY EMERSON MD Cbc With Auto Diff (11/09/21 09:10) Comprehensive Metabolic Panel (11/09/21 09:10) Creatine Kinase (11/09/21 09:10) Creatine Kinase Mb (11/09/21 09:10) Probnp B-Type Pneumatic Drum Sander (11/09/21 09:10) PT (11/09/21 09:10) Partial Thromboplastin Time. (11/09/21 09:10) Xr Chest 1v (11/09/21 09:10) Ekg-Routine (11/09/21 09:10) Troponin I High Sensitivity (11/09/21 09:10) Ammonia (11/09/21 09:10) Lactic Acid(Ml) (11/09/21 09:10) Urinalysis (11/09/21 09:18) Blood Culture (11/09/21 09:18) Diltiazem Hcl (Cardizem) (11/09/21 10:00) Lorazepam (Ativan) (11/09/21 09:40) Lorazepam (Ativan) (11/09/21 09:46) Accucheck Prn (11/09/21 09:46) Diltiazem Hcl (Cardizem) (11/09/21 09:46) 0.9 % Sodium Chloride (Ns 100ml) (11/09/21 09:46) Dextrose 50 % In Water (Dextrose 50%-Linda (11/09/21 09:50) Dextrose 10 % In Water (Dextrose 10%-Linda (11/09/21 09:50) Accucheck (11/09/21 09:50) Accucheck (11/10/21 09:50) Dextrose 10 % In Water (Dextrose 10%-Linda (11/09/21 10:02) Ct Head Wo Contrast (11/09/21 10:11) Admit Orders (11/09/21 10:36) Vital Signs Date Time Temp Pulse Resp B/P (MAP) Pulse Ox O2 Delivery O2 Flow Rate FiO2 11/09/21 10:30 138 22 152/80 (104) 98 Room Air 11/09/21 10:12 102 11/09/21 09:16 97.9 85 20 118/97 (104) 97 Room Air 11/09/21 08:55 97.9 85 20 97 11/09/21 08:55 97.9 85 20 Administered Medications Medications (Trade) Dose Ordered Sig/Nydia Route PRN Reason Start Time Stop Time Status Last Admin Dose Admin Dextrose 1,000 ml @ 100 mls/hr Q10H STAT IV 11/09/21 09:50 11/09/21 19:49 DC 11/09/21 10:13 100 MLS/HR Dextrose (Dextrose 50%-Water Syringe) 25 ml OT STAT IV 11/09/21 09:50 11/09/21 09:52 DC 11/09/21 10:00 25 ML Diltiazem HCl 125 mg/Sodium Chloride 125 ml @ 0 mls/hr IV 11/09/21 10:00 11/10/21 16:47 DC 11/09/21 10:12 5 MLS/HR Lorazepam (Ativan) 0.5 mg STAT STAT IV 11/09/21 09:40 11/09/21 09:45 DC 11/09/21 10:13 0.5 MG Laboratory Tests Test 11/09/21 09:00 11/09/21 09:18 11/09/21 09:49 11/09/21 10:32 White Blood Count 9.3 10^3/uL (4.5-11.0) Red Blood Count 4.58 10^6/uL (4.50-5.90) Hemoglobin 13.8 g/dL (13.9-16.3) L Hematocrit 41.0 % (37.0-53.0) Mean Corpuscular Volume 89.5 fL (78-100) Mean Corpuscular Hemoglobin 30.1 pg (26-34) Mean Corpuscular Hemoglobin Concent 33.7 g/dL (33-36.5) Red Cell Distribution Width 13.8 % (11.5-14.5) Platelet Count 338 10^3/uL (150-400) Mean Platelet Volume 9.7 fL (7.8-11.0) Neutrophils (%) (Auto) 79.2 % (41.0-85.0) Lymphocytes (%) (Auto) 12.6 % (24.0-44.0) L Monocytes (%) (Auto) 6.9 % (5.0-12.0) Neutrophils # (Auto) 7.4 10^3/uL (1.8-7.7) Lymphocytes # (Auto) 1.17 10^3/uL1 (1.0-4.8) Monocytes # (Auto) 0.6 10^3/uL (0.3-0.8) Absolute Immature Granulocyte (auto 0.02 10^3 u/L (0-2) Absolute Eosinophils (auto) 0.1 10^3/uL (0.0-0.2) Immature Granulocytes % 0.20 % (0.00-0.50) Eosinophils % 0.8 % (0.0-5.0) Basophils % 0.3 % (0.0-0.2) H Basophils # 0.0 10^3/uL (0.0-0.1) Prothrombin Time 10.0 SEC (9.1-11.5) Prothrombin Time INR (Non-Therap) 1.0 Activated Partial Thromboplast Time 25.2 SEC (22.5-33.1) Sodium Level 140 mmol/L (132-145) Potassium Level 4.4 mmol/L (3.6-5.2) Chloride Level 104.0 mmol/L (96-109) Carbon Dioxide Level 25.6 mmol/L (20.0-32) Anion Gap 14.8 Blood Urea Nitrogen 24 mg/dL (7-18) H Creatinine 0.79 mg/dL (0.59-1.40) Estimated GFR () 116.3 (>/=60) Est GFR (CKD-EPI)(Non-Afr Israeli) 96.1 (>/=60) BUN/Creatinine Ratio 30.0 Glucose Level 131 mg/dL (70-110) H Lactic Acid Level 1.9 mmol/L (0.5-1.9) Calcium Level 9.0 mg/dL (8.4-10.5) Total Bilirubin 0.5 mg/dL (0.2-1.0) Aspartate Amino Transferase (AST) 22 U/L (0-35) Alanine Aminotransferase (ALT) 26 U/L (12-78) Alkaline Phosphatase 70 U/L (50-136) Ammonia 3 umol/L (11-35) L Total Creatine Kinase 112 U/L (39-308) Creatine Kinase MB 2.8 ng/mL (0.5-3.6) Troponin I High Sensitivity 17 ng/L (0-75) Pro-B-Type Natriuretic Peptide 482 pg/mL (0-125) H Total Protein 6.7 g/dL (6.4-8.2) Albumin 3.8 g/dL (3.4-5.0) Globulin 2.9 Albumin/Globulin Ratio 1.310 Urine Collection Type UNKNOWN Urine Color YELLOW Urine Appearance CLEAR Urine Bilirubin NEGATIVE (NEGATIVE) Urine Ketones NEGATIVE (NEGATIVE) Urine Specific Bruni 1.025 (1.005-1.030) Urine pH 5.0 (4.5-8.0) Urine Protein NEGATIVE (NEGATIVE) Urine Urobilinogen 0.2 E.U./dL (0.2) Urine Nitrate NEGATIVE (NEGATIVE) Urine Leukocyte Esterase NEGATIVE (NEGATIVE) Urine Glucose (Auto)(UA) 100 mg/dL (NEGATIVE) H Urine Blood NEGATIVE (NEGATIVE) POC Glucose 75 (70 - 110) 139 (70 - 110) H Progress Progress stable, anxious. @ 0952- cbg 75. start hypoglycemic protocol EKG/XRAY/CT/US EKG Comments: afib W rvr @ 144 ER DEPART Departure Time of Disposition: 19:21 Disposition: 09 ADMITTED INPATIENT Impression: Primary Impression: Altered mental status Additional Impressions: Atrial fibrillation with RVR Seizure disorder Hypoglycemia Condition: Critical Referrals: RA SEGURA MD (PCP) PRIMARY CARE PROVIDER Scripts [Metoprolol Succinate] 25 MG TAB.ER.24H No Conflict Check 25 MG PO DAILY for 30 Days Prov: DEVIN PINEDA MD 11/10/21 Dofetilide (TIKOSYN) 125 Mcg Capsule 125 MCG PO BID for 30 Days, CAPSULE Prov: DEVIN PINEDA MD 11/10/21 Duration or Time Spent with Pa: 1hr Problem Qualifiers SHELLY EMERSON MD Nov 09, 2021 09:33
[2021-11-09] MEDS ORDERED: ATIVAN IV STA (09:40)
[2021-11-09] MEDS ORDERED: ATIVAN ONE (09:46)
[2021-11-09] MEDS ORDERED: NS 100ML 100 ML IV ONE ×2 (09:46→14:26)
[2021-11-09] MEDS ORDERED: CARDIZEM ONE (09:46)
--- NOTE | 2021-11-09 09:49 | DIREP ---
PROCEDURE:CHEST 1 VIEW COMPARISON:[facility], CR, XRAY CHEST SINGLE VW, 08/21/2020, 10:34 AM. INDICATIONS:seizure FINDINGS: LUNGS/PLEURA:No focal consolidation, pleural effusion, or pneumothorax. VASCULATURE:Normal. Unremarkable pulmonary vasculature. CARDIAC:Normal. No cardiac silhouette abnormality or cardiomegaly. MEDIASTINUM:Normal. No visible mass or adenopathy. BONES:Degenerative change without evidence of acute osseus abnormality. OTHER:Negative. CONCLUSION: 1. No acute cardiopulmonary process. Dictated by: Timothy Romero MD on 11/09/2021 at 09:46 AM
[2021-11-09] MEDS ORDERED: DEXTROSE 10%-WATER IV SOLUTION 1,000 ML IV STA (09:50)
[2021-11-09] MEDS ORDERED: DEXTROSE 50%-WATER SYRINGE IV STA (09:50)
--- NOTE | 2021-11-09 09:50 | NUR ---
BEDSIDE GLUCOSE 75, EDP NOTIFIED.
[2021-11-09 09:55] LABS: CARBON DIOXIDE 25.6 mmol/L (20.0-32)
[2021-11-09] MEDS ORDERED: CARDIZEM 125 MG in NS 100ML 100 ML IV SCH (10:00)
[2021-11-09] MEDS ORDERED: DEXTROSE 10%-WATER IV SOLUTION 1,000 ML IV ONE (10:02)
--- NOTE | 2021-11-09 10:33 | NUR ---
BEDSIDE GLUCOSE 139, EDP NOTIFIED.
--- NOTE | 2021-11-09 10:54 | DIREP ---
PROCEDURE:CT HEAD OR BRAIN W/O CONTRAST COMPARISON:[facility], CR, XRAY CHEST SINGLE VW, 11/09/2021, 09:23 AM. INDICATIONS:Alteration of consciousness TECHNIQUE:Axial CT images were obtained from vertex to the skull base without the administration of IV contrast. FINDINGS: VENTRICLES: The ventricles are normal in size and configuration for age. No hydrocephalus. CEREBRUM: Minimal chronic small vessel white matter ischemic changes. No intracranial hemorrhage, mass-effect, or midline shift. No CT evidence of acute infarction. CEREBELLUM: Normal for age. BRAINSTEM: Normal. BASAL CISTERNS: Normal. SKULL: Normal. No fracture. SINUSES: Normal. Visualized paranasal sinuses and mastoid air cells are clear. OTHER: No scalp swelling. Calcified plaque in the carotid siphons. CONCLUSION: 1. No acute intracranial abnormality. 2. Minimal chronic small vessel white matter ischemic changes. Dictated by: Brandon Esparza MD on 11/09/2021 at 10:50 AM
--- NOTE | 2021-11-09 11:17 | NUR ---
BEDSIDE GLUCOSE 201, EDP NOTIFIED.
--- NOTE | 2021-11-09 12:15 | NUR ---
ARRIVAL PT ARRIVED TO ROOM ICU5, NO S/S OF DISTRESS NOTED. PT PLACED ON BEDSIDE MONITOR. WILL CONT WITH PLAN OF CARE.
[2021-11-09] MEDS ORDERED: TOPROL XL PO STA (12:23)
[2021-11-09 12:25] LABS: BILIRUBIN,URINE NEGATIVE (NEGATIVE); UROBILINOGEN,URINE 0.2 E.U./dL (0.2)
[2021-11-09] MEDS ORDERED: COZAAR PO SCH (12:30)
[2021-11-09] MEDS ORDERED: HNS 1000ML/KCL 20MEQ 1,000 ML IV ONE (12:30)
[2021-11-09] MEDS ORDERED: DEXTROSE 50%-WATER SYRINGE IV PRN ×2 (12:30)
[2021-11-09] MEDS ORDERED: D5W 1000ML 1,000 ML IV PRN (12:30)
[2021-11-09] MEDS ORDERED: ROCEPHIN ONE (14:27)
[2021-11-09] MEDS ORDERED: TOPROL XL PO ONE (14:27)
[2021-11-09] MEDS ORDERED: TIKOSYN PO ONE (14:30)
--- NOTE | 2021-11-09 14:32 | PCM.EKG ---
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
--- NOTE | 2021-11-09 14:40 | PCM.EKG ---
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
[2021-11-09] MEDS: ROCEPHIN 1,000 MG in NS 100ML 100 ML IV SCH (15:44)
--- NOTE | 2021-11-09 16:17 | NUR ---
STATUS DR PINEDA NOTIFIED OF EKG. NO NEW ORDERS RECEIVED.
--- NOTE | 2021-11-09 16:55 | PCM.EKG ---
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
[2021-11-09] MEDS: HUMALOG SQ SCH (18:14)
--- NOTE | 2021-11-09 18:17 | HPH ---
DICTATOR NAME: Dorita Lopez MD CHIEF COMPLAINT: Severe hypoglycemia, rapid atrial fibrillation. 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 Bernstein in the past and I have admitted him in 08/2020, at that time, he came in with atrial fibrillation with rapid ventricular response with right bundle branch block, left posterior fascicular block and I consulted him in the Emergency Room and subsequently he was cardioverted and went back into regular sinus rhythm, based on my recollection. He has been lost to follow up and he had a diabetic ischemic ulcer on his right foot also, but as far as I remember, he did go back into regular sinus rhythm. He chemically converted with IV amiodarone. He did have a relative bradycardia in the context of right bundle branch block and left posterior fascicular block, would bring up the issue of significant high-grade infra-Hisian block, requiring pacer insertion with atrial fibrillation and sinus node dysfunction. At the present time, his blood sugar was less than 20. He was in atrial fibrillation with rapid ventricular response and subsequently he was placed on Cardizem drip and his rate improved. He was given D50 and I was called for admission to ICU to rule out acute coronary event, in view of his multiple risk factors with underlying insulin-dependent diabetes mellitus. ALLERGIES: None known. MEDICATIONS: He is on losartan 25 mg once a day, amiodarone 200 mg once a day. I am not sure if he is taking it. He is on Lantus insulin 30 units twice a day, Eliquis 5 mg twice day and he is on a sliding scale insulin also. He is on aspirin 81 mg once a day, Colace 100 mg twice a day, Lyrica 150 mg once a day, doxepin 10 mg once a day, glipizide 5 mg twice a day, multivitamin once a day. This is based off the medication list from the Emergency Room. Crestor 20 mg once a day, Senokot 8.6 mg once a day. PAST MEDICAL HISTORY: Indicative of hypertension, hypertensive heart disease and no definite CAD has been established. He has had prior history of carotid bruit. He has got chronic pain syndrome, 2 back operations, nerve stimulator and he has got a pain pump in his abdomen in the left lower quadrant. SOCIAL HISTORY: Nonsmoker, no ethanol abuse. FAMILY HISTORY: Positive for heart problems. PHYSICAL EXAMINATION: GENERAL: He was found to be in a rate of 140-150. VITAL SIGNS: Blood pressure 152/80 with a pulse of 138 and respirations 22, saturation 98%. HEENT: Unremarkable. NECK: No JVD. Faint right carotid bruit was noted. Upstroke was normal. LUNGS: Poor air entry bilaterally. HEART: Sounds S1, S2 irregular No definite murmur was noted. ABDOMEN: Rounded. Loss of muscle tone in the anterior abdominal wall with a pain pump in the left lower quadrant. Bowel sounds are present. No organomegaly was elicited. EXTREMITIES: Distal pulses poorly felt. Mild dependent edema was noted. NEUROLOGIC: No lateralizing motor deficit is documented. DIAGNOSTIC DATA: EKG: Atrial fibrillation with rapid ventricular response with right bundle-branch block and left posterior fascicular block. His CBC was normal. Chemistry shows a BUN of 24, creatinine 0.79, and 131 glucose and 482 ProBNP. Urine was negative. Troponin were negative. COVID PCR was negative. His head CT shows microvascular ischemia, small vessel disease, and his chest x-ray was unremarkable. IMPRESSION: Atrial fibrillation with rapid ventricular response, severe hypoglycemia, mental changes due to hypoglycemia related to glipizide and poor diabetic control, insulin-dependent diabetes, hypertension, hypertensive heart disease, manifestations of right bundle branch block, left posterior fascicular block. Rule out underlying significant infra-Hisian disease. PLAN: At this time, admit the patient. We will stop Cardizem. We will start him on Tikosyn 125 mcg twice a day, metoprolol 50 mg once a day to control his blood pressure. Continue his statin and may start him on Lovenox. Serial EKGs, enzymes. Monitor his glucose level. Further management depending on the clinical course. Dorita Lopez MD DR: NERY/BALJINDER/MANUEL TID: [id number] RECEIPT: [id number] MTDD
[2021-11-09] MEDS: TIKOSYN PO SCH (20:18)
[2021-11-09] MEDS: COLACE PO SCH (20:18)
[2021-11-09] MEDS: LYRICA PO SCH (20:19)
[2021-11-09] MEDS ORDERED: SINEQUIN PO SCH (21:00)
[2021-11-09] MEDS ORDERED: LOVENOX SQ SCH (21:00)
[2021-11-09] MEDS ORDERED: LYRICA PO ONE (21:00)
[2021-11-09] MEDS ORDERED: SENOKOT PO SCH (21:00)
[2021-11-09] MEDS ORDERED: NORCO 10MG PO ONE ×2 (22:53→23:00)
[2021-11-10] VITALS (59 sets, daily range): BP systolic 61–157; BP diastolic 28–114
[2021-11-10] MEDS: HUMALOG SQ SCH ×2 (08:00→12:00)
[2021-11-10] MEDS: TIKOSYN PO SCH (08:53)
[2021-11-10] MEDS: LYRICA PO SCH (08:55)
[2021-11-10] MEDS: COLACE PO SCH (08:56)
[2021-11-10] MEDS ORDERED: CRESTOR PO SCH (09:00)
[2021-11-10] MEDS ORDERED: TOPROL XL PO SCH (09:00)
--- NOTE | 2021-11-10 10:29 | PCM.EKG ---
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
[2021-11-10] MEDS ORDERED: Metoprolol Succinate PO (10:57)
[2021-11-10] MEDS ORDERED: DOFE125C PO (10:57)
--- NOTE | 2021-11-10 11:39 | NUR ---
DISCHARGE PLAN PATIENT LIVES AT HOME WITH HIS SIGNIFICANT OTHER. 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 HIS PCP IS DR SEGURA AND FISHER QUAHOG IS DR PINEDA. PATIENT OWNS A CANE BUT NO OTHER DME INDICATED. PATIENT EDUCTED ON HH BUT HE WILL NOT QUALIFY HE CONTINUES TO DRIVE DAILY. PATIENT WILL HAVE PLACEMENT OF A LOOP RECORDER TODAY AND WILL DISCHARGE HOME WHEN MEDICALLY STABLE. PATIENT DENIED NEED FOR ADDITIONAL RESOURCES AT THIS TIME.
--- NOTE | 2021-11-10 12:10 | NUR ---
Procedure Patient report given to Tori RN. Patient transferred to laborer tan house via bed without s/s of acute distress noted
--- NOTE | 2021-11-10 12:34 | PCM.EKG ---
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
[2021-11-10] MEDS: ROCEPHIN 1,000 MG in NS 100ML 100 ML IV SCH (13:00)
--- NOTE | 2021-11-10 13:30 | NUR ---
Return Returned from procedure via bed awake, alert, oriented and answering questions appropriatell. Denies pain. Dressing to left chest CDI without s/s of active bleeding. Monitor placed on patient and lunch tray provided. Denies needs or concerns. No s/s of acute distress noted.
[2021-11-10] MEDS ORDERED: SUBLIMAZE ONE (14:29)
[2021-11-10] MEDS ORDERED: VERSED ONE (14:29)
--- NOTE | 2021-11-10 15:53 | NUR ---
Discharge Written and verbal discharge instructions provided. Encourged to continue routine medications as directed, continue Cardiac diet, resume activities as tolerated. If any symptoms of concern strongly encouraged to return to the ER. Educated on dressing to the left chest and encouraged not to remove until follow up with Dr. Lopez in 2 days. Medications called to [facility] pharmacy per patioent request. and patient denies needs questions or concerns. No s/s of acute distress noted. Transferred from room to private vehicle via wheel chair. Transferred from wheel chair to passenger side of vehicle without assistance and without difficulty. will drive patient home. GCS-15. 1640 - Contacted patients Ashley to tell her to go to Dr. Wilson office tomorrow to bead picker a device per Dr. Lopez. Ashley verbalized understanding.
--- NOTE | 2021-11-10 23:38 | DSH ---
DATE OF DISCHARGE: 11/10/2021 DICTATOR NAME: Dorita Lopez MD FINAL DIAGNOSES: Atrial fibrillation with rapid ventricular response, hypoglycemia, insulin-dependent diabetes mellitus, noncompliant with medications, chronic pain syndrome and has a pain pump, history of right bundle branch block, left posterior fascicular block with history of dizziness, lightheadedness, near syncope post-loop recorder insertion on 11/10/2021, hypertensive heart disease, acute coronary event excluded. Please refer to my history and physical to the point of my impression. HOSPITAL COURSE: The patient is a 71-year-old white male who was seen in early part of 2020. He had come with atrial fibrillation with rapid ventricular response. 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 Blood sugar was very low around 30 and he was given D50 and then subsequently, his blood sugars were monitored and they were acceptable. He has been on glipizide, which was taken away and he went into regular sinus rhythm initially after giving Cardizem and then started him on dofetilide 125 mcg twice a day. He chemically cardioverted back into regular sinus rhythm, but he had a definite right bundle branch block and left posterior fascicular block and his QTc did not prolong much, it was still less than 450 milliseconds, definitely less than 500 milliseconds and a loop recorder was inserted under local anesthesia in the left anterior chest wall in the precordial region without any complication. [place] were placed and this is in view of the fact that he is having paroxysmal atrial fibrillation along with an ominous findings on EKG of right bundle branch block and left posterior fascicular block with PACs followed by pauses and at times, pauses are noted, so very likely he may have tachybrady manifestation of sinus node dysfunction along with hypertension, hypertensive heart disease, chronic diastolic heart failure, an underlying ischemic substrate definitely needs to be excluded and he will be coming in the office for a perfusion study to assess for myocardial perfusion and hence, he was dismissed on dofetilide 125 mcg twice a day, metoprolol 25 mg once a day, Eliquis 5 mg twice a day, aspirin 81 mg once a day, Colace 100 mg twice a day, doxepin 10 mg once a day. He is on Lantus insulin 30 units daily and losartan 25 mg once a day, metformin 1 gram twice a day, glipizide was stopped, multivitamin once a day, Lyrica 150 mg twice a day for restless legs syndrome, Crestor 20 mg once a day, Senokot 8.6 mg at bedtime. 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 Dorita Lopez MD DR: NERY/MARLENE/JANES TID: [id number] RECEIPT: [id number]
--- NOTE | 2021-11-12 03:16 | ECHO ---
DATE OF SERVICE: 11/10/2021 DICTATOR NAME: Dorita Lopez MD ECHOCARDIOGRAPHY REPORT A 71-year-old male with history of atrial fibrillation with rapid ventricular response, history of abnormal EKG, hypertension, hypertensive heart disease, insulin-dependent diabetes mellitus, assess LV function. Mitral valve shows mitral regurgitation 1.2 meters velocity, normal E to A ratio, aortic sclerosis with adequate aortic valve opening of 4.19 square cm. Tricuspid valve shows trivial tricuspid regurgitation velocity of 1.42 meters with right ventricular systolic pressure of about 18 mm, which is normal. Right ventricle appears to be normal. Right atrium is normal. Left atrium mildly enlarged in 4-chamber longitudinal dimension of 5.45 cm. Left ventricle is boot shaped and it seems to be enlarged, but actually the measurements are inaccurate and 4-chamber appears to be normal in size, one cannot give any good estimation of the M-mode measurements, but based on the 2D, the left ventricle is normal in size with some degree of distal septum and apex being mildly hypokinetic and ejection fraction is still about 50%. No pericardial effusion is noted. No thrombus in any other cardiac chambers. Hence picture consistent with normal LV size with questionable wall motion abnormality of the septum and apex with an intact LV systolic function and mild enlargement of left atrium and no valvular abnormality documented. Dorita Lopez MD DR: NERY/CARLOTA TID: [id number] RECEIPT: [id number]
== END 2021-11-10 15:53 | disposition home or self-care (01) | DRG 261 ==
LOC: EDBD 08:50 → ER 08:50 → ICU 10:44
PROVIDERS: ADMIT Specialist; ATTEND Specialist
PROC: 5A2204Z Restoration of Cardiac Rhythm, Single (ICD-10-PCS; 2021-11-09)
PROC: 0JH632Z Insertion of Monitoring Device into Chest Subcutaneous Tissue and Fascia, Percutaneous Approach (ICD-10-PCS; principal; 2021-11-10 10:00)
DX: I48.0 Paroxysmal atrial fibrillation (principal); I50.32 Chronic diastolic (congestive) heart failure; I45.2 Bifascicular block; E11.649 Type 2 diabetes mellitus with hypoglycemia without coma; T38.3X5A Adverse effect of insulin and oral hypoglycemic [antidiabetic] drugs, initial encounter; I11.0 Hypertensive heart disease with heart failure; G25.81 Restless legs syndrome; G89.4 Chronic pain syndrome; I49.5 Sick sinus syndrome; L97.519 Non-pressure chronic ulcer of other part of right foot with unspecified severity; Z79.4 Long term (current) use of insulin; Z79.899 Other long term (current) drug therapy; Z91.14 Patient's other noncompliance with medication regimen; Y92.89 Other specified places as the place of occurrence of the external cause
CPT/HCPCS: 33285; 36415; 70450; 71045; 80053; 81003; 82140; 82550; 82553; 82948; 83605; 83880; 84484; 85025; 85610; 85730; 87040; 87633; 93005; 93306; 99285; C1764; G0378; J0696; J1815; J2060; J2250; J3010; J7030; J3490

== ENCOUNTER → 2023-11-27 | Outpatient (CLI) | payer MEDICARE ==
[~2023-11-27] MED LIST changes: +DOFE125C PO; -GLIP5TAB10 PO; +GLIP5TAB19 PO; +Metoprolol Succinate PO
[2023-11-27 12:43] LABS: BASOPHIL % 0.5 % (0.0-0.2); EOSINOPHIL # 0.6 10^3/uL (0.0-0.2); EOSINOPHIL % 6.6 % (0.0-5.0); HEMATOCRIT(ML) 39.4 % (37.0-53.0); HEMOGLOBIN 13.2 g/dL (13.9-16.3); LYMPHOCYTES # 2.16 10^3/uL1 (1.0-4.8); LYMPHOCYTES % 25.9 % (24.0-44.0); MEAN CORP HGB 29.9 pg (26-34); MEAN CORP HGB CONCENTRATION 33.5 g/dL (33-36.5); MEAN CORP VOLUME 89.1 fL (78-100); MONOCYTES % 12.5 % (5.0-12.0); NEUTROPHIL # 4.5 10^3/uL (1.8-7.7); NEUTROPHILS % 54.3 % (41.0-85.0); PLATELET COUNT 210 10^3/uL (150-400); RED BLOOD CELL 4.42 10^6/uL (4.50-5.90); RED CELL DISTRIBUTION WIDTH 13.9 % (11.5-14.5); WHITE BLOOD CELL 8.3 10^3/uL (4.5-11.0)
[2023-11-27 12:47] LABS: +ADD MANUAL DIFF(NO CHRG) NO
[2023-11-27 13:11] LABS: ALBUMIN(ML) 3.2 g/dL (3.4-5.0); ALBUMIN/GLOBULIN RATIO 0.864; ANION GAP 11.6; BUN/CREATININE RATIO 16.34 (10.0-20.0); CALCIUM 8.7 mg/dL (8.4-10.5); CARBON DIOXIDE 28.6 mmol/L (20.0-32); CREATININE SERUM 1.04 mg/dL (0.59-1.40); EST GFR, NON-AA 69.6 (>/=60); LDL/HDL RATIO 0.5; POTASSIUM 4.2 mmol/L (3.6-5.2)
== END | disposition home or self-care (01) ==
LOC: NPLAB 12:18
PROVIDERS: ATTEND Family Medicine
DX: I10 Essential (primary) hypertension (principal); E78.2 Mixed hyperlipidemia; E11.65 Type 2 diabetes mellitus with hyperglycemia; Z79.899 Other long term (current) drug therapy
CPT/HCPCS: 36415; 80053; 80061; 82306; 83036; 84443; 85025

== ENCOUNTER → 2023-12-13 | Outpatient (CLI) | payer MEDICARE | END | disposition home or self-care (01) | LOC: NPLAB 15:26 | PROVIDERS: ATTEND Family Medicine | DX: I10 Essential (primary) hypertension (principal); E11.65 Type 2 diabetes mellitus with hyperglycemia; Z79.4 Long term (current) use of insulin; E78.2 Mixed hyperlipidemia | CPT/HCPCS: 36415; 80164 ==

== ENCOUNTER → 2024-03-04 | Outpatient (CLI) | payer MEDICARE ==
[~2024-03-04] MED LIST changes: -DOFE125C PO; +DOFE125C2 PO
[2024-03-04 12:24] LABS: BASOPHIL # 0.1 10^3/uL (0.0-0.1); BASOPHIL % 0.6 % (0.0-0.2); EOSINOPHIL # 0.3 10^3/uL (0.0-0.2); HEMOGLOBIN 14.5 g/dL (13.9-16.3); LYMPHOCYTES % 18.6 % (24.0-44.0); MEAN CORP HGB 29.8 pg (26-34); MEAN CORP HGB CONCENTRATION 33.7 g/dL (33-36.5); MEAN CORP VOLUME 88.5 fL (78-100); MONOCYTES # 0.8 10^3/uL (0.3-0.8); NEUTROPHIL # 5.8 10^3/uL (1.8-7.7); NEUTROPHILS % 67.7 % (41.0-85.0); PLATELET COUNT 233 10^3/uL (150-400); RED BLOOD CELL 4.86 10^6/uL (4.50-5.90); RED CELL DISTRIBUTION WIDTH 13.7 % (11.5-14.5); WHITE BLOOD CELL 8.6 10^3/uL (4.5-11.0)
[2024-03-04 12:28] LABS: +ADD MANUAL DIFF(NO CHRG) NO
[2024-03-04 12:48] LABS: ALBUMIN(ML) 3.4 g/dL (3.4-5.0); ALBUMIN/GLOBULIN RATIO 1.096; ANION GAP 12.1; CALCIUM 8.9 mg/dL (8.4-10.5); CARBON DIOXIDE 28.2 mmol/L (20.0-32); CREATININE SERUM 0.76 mg/dL (0.59-1.40); EST GFR, NON-AA 99.7 (>/=60); POTASSIUM 4.3 mmol/L (3.6-5.2)
== END | disposition home or self-care (01) ==
LOC: NPLAB 12:01
PROVIDERS: ATTEND Nurse Practitioner Acute Care
DX: I10 Essential (primary) hypertension (principal); E11.8 Type 2 diabetes mellitus with unspecified complications; F28 Other psychotic disorder not due to a substance or known physiological condition; F02.80 Dementia in other diseases classified elsewhere, unspecified severity, without behavioral disturbance, psychotic disturbance, mood disturbance, and anxiety
CPT/HCPCS: 36415; 80053; 80164; 83036; 85025

== ENCOUNTER → 2024-04-23 | Outpatient (CLI) | payer MEDICARE | END | disposition home or self-care (01) | LOC: NPLAB 12:56 | PROVIDERS: ATTEND Nurse Practitioner Acute Care | DX: I10 Essential (primary) hypertension (principal); E11.65 Type 2 diabetes mellitus with hyperglycemia; E78.2 Mixed hyperlipidemia; E46 Unspecified protein-calorie malnutrition | CPT/HCPCS: 36415; 80164 ==

== ENCOUNTER → 2024-05-27 | Outpatient (CLI) | payer MEDICARE ==
[2024-05-27 16:55] LABS: ALBUMIN(ML) 3.3 g/dL (3.4-5.0); ANION GAP 15.8; BUN/CREATININE RATIO 20.98 (10.0-20.0); CALCIUM 8.6 mg/dL (8.4-10.5); CARBON DIOXIDE 24.9 mmol/L (20.0-32); CREATININE SERUM 0.81 mg/dL (0.59-1.40); EST GFR, NON-AA 92.6 (>/=60); POTASSIUM 3.7 mmol/L (3.6-5.2)
== END | disposition home or self-care (01) ==
LOC: NPLAB 15:37
PROVIDERS: ATTEND Nurse Practitioner Acute Care
DX: I10 Essential (primary) hypertension (principal); E78.2 Mixed hyperlipidemia; E11.65 Type 2 diabetes mellitus with hyperglycemia; E46 Unspecified protein-calorie malnutrition
CPT/HCPCS: 36415; 80053; 80164

== ENCOUNTER → 2024-06-03 | Outpatient (CLI) | payer MEDICARE ==
[2024-06-03 15:52] LABS: BASOPHIL % 0.5 % (0.2-1.2); EOSINOPHIL # 0.3 10^3/uL (0.0-0.2); EOSINOPHIL % 4.3 % (0.0-5.0); HEMATOCRIT(ML) 36.8 % (37.0-53.0); LYMPHOCYTES # 1.35 10^3/uL1 (1.0-4.8); LYMPHOCYTES % 22.1 % (24.0-44.0); MEAN CORP HGB 30.9 pg (26-34); MEAN CORP VOLUME 90.9 fL (78-100); MONOCYTES # 0.5 10^3/uL (0.3-0.8); MONOCYTES % 8.2 % (5.0-12.0); NEUTROPHILS % 64.6 % (41.0-85.0); PLATELET COUNT 192 10^3/uL (150-400); RED BLOOD CELL 4.05 10^6/uL (4.50-5.90); RED CELL DISTRIBUTION WIDTH 13.1 % (11.5-14.5); WHITE BLOOD CELL 6.1 10^3/uL (4.5-11.0)
[2024-06-03 16:00] LABS: +ADD MANUAL DIFF(NO CHRG) NO; HEMOGLOBIN 12.5 g/dL (13.9-16.3)
[2024-06-03 16:33] LABS: ALBUMIN(ML) 2.8 g/dL (3.4-5.0); ALBUMIN/GLOBULIN RATIO 0.965; ANION GAP 13.2; BUN/CREATININE RATIO 23.91 (10.0-20.0); CALCIUM 8.1 mg/dL (8.4-10.5); CARBON DIOXIDE 29.7 mmol/L (20.0-32); CREATININE SERUM 0.92 mg/dL (0.59-1.40); POTASSIUM 3.9 mmol/L (3.6-5.2)
== END | disposition home or self-care (01) ==
LOC: NPLAB 14:06
PROVIDERS: ATTEND Family Medicine
DX: I10 Essential (primary) hypertension (principal); E11.9 Type 2 diabetes mellitus without complications
CPT/HCPCS: 36415; 80053; 83036; 83880; 85025